=== PATIENT | male | born 1960 | race Asian ===

== ENCOUNTER 2018-12-08 06:57 | Day surgery (SDC) | payer OTHER ==
[~2018-12-08] VITALS: Ht 167.6 cm; Wt 55.1 kg
[~2018-12-08 06:57] MED LIST: ASPI-903 PO; LOSA1TAB22 PO; LOVA20TA PO; MTF1000T PO
[2018-12-08 07:33] VITALS: Ht 167.6 cm; Wt 55.1 kg
[2018-12-08 08:03] VITALS: BP 157/86; PULSE 69; RESP 18
[2018-12-08] MEDS ORDERED: PROPOFOL 40 ML ONE (08:41)
[2018-12-08 09:19] VITALS: BP 138/90; RESP 16
== END 2018-12-08 11:15 | disposition home or self-care (01) ==
LOC: GIL 06:57
PROVIDERS: ATTEND Internal Medicine Gastroenterology
DX: Z12.11 Encounter for screening for malignant neoplasm of colon (principal); D12.5 Benign neoplasm of sigmoid colon; K57.30 Diverticulosis of large intestine without perforation or abscess without bleeding; K64.4 Residual hemorrhoidal skin tags; K64.8 Other hemorrhoids; I10 Essential (primary) hypertension; E11.9 Type 2 diabetes mellitus without complications
CPT/HCPCS: 45385; 82962; 88305; Z7610